=== PATIENT | male | born 1940 | race Caucasian/White ===

== ENCOUNTER 2022-05-10 06:18 | Outpatient (REF) | payer SELFPAY ==
[2022-05-10 06:07] LABS: MANUAL DIFF FLAG NO
[2022-05-10 06:34] LABS: Basophils Percent Auto 0.5 % (0-2); Eosinophils Absolute Auto 0.3 X10*3/uL (0.0-0.4); Eosinophils Percent Auto 5.5 % (0-4); Hematocrit 35.4 % (42.0-52.0); Hemoglobin 10.6 g/dl (14.0-18.0); Imm Gran Abs Auto 0.03 X10*3/uL (0.00-0.03); Imm Gran Pct Auto 0.5 % (0.0-0.4); Lymphocytes Absolute Auto 1.2 X10*3/uL (1.2-4.9); Lymphocytes Percent Auto 20.3 % (20-40); Mean Corpuscular HGB Conc 29.9 g/dl (31.0-36.0); Mean Corpuscular Hemoglobin 27.2 pg (27.0-33.0); Mean Corpuscular Volume 90.8 fL (80.0-98.0); Mean Platelet Volume 10.6 fL (9.4-12.4); Monocytes Absolute Auto 0.8 X10*3/uL (0.1-1.2); Monocytes Percent Auto 13.3 % (2-11); Neutrophils Absolute Auto 3.4 x10*3/uL (2.0-8.3); Neutrophils Percent Auto 59.9 % (45-73); Platelet Count 152 X10*3/uL (160-400); Red Cell Distribution Width 13.2 % (11.0-16.0); White Blood Count 5.7 X10*3/uL (4.8-10.8)
[2022-05-10 07:07] LABS: Anion Gap 11 (12-20); Blood Urea Nitrogen 22 mg/dL (9-16); Calcium 8.7 mg/dL (8.4-10.2); Chloride 97 mmol/L (96-108); Estimated Glomerular Filt Rate > 60; Glucose Random 73 mg/dL (60-115); Potassium 4.5 mmol/L (3.3-5.1); Sodium 144 mmol/L (135-145)
[2022-05-10 08:02] LABS: Carbon Dioxide 41 mmol/L (22-29)
== END 2022-05-10 06:19 | disposition home or self-care (01) ==
LOC: HO.MMNH1L 06:18
PROVIDERS: Visit Provider Family Medicine
DX: I10 Essential (primary) hypertension (principal); E87.3 Alkalosis
CPT/HCPCS: 36415; 80048; 85025

== ENCOUNTER 2022-05-20 03:51 | Emergency (ER) | payer MEDICARE, MEDICAID, SELFPAY ==
[2022-05-20] VITALS (13 sets, daily range): BP systolic 71–131; BP diastolic 39–71; PULSE 77–120; RESP 14–27; TEMP 37.1–37.9; O2SAT 94–99; BMI 28.7
--- NOTE | 2022-05-20 | ECG_ITS ---
Test Reason : TACHYCARDIA Blood Pressure : / mmHG Vent. Rate : 118 BPM Atrial Rate : 118 BPM P-R Int : 126 ms QRS Dur : 120 ms QT Int : 326 ms P-R-T Axes : 049 204 059 degrees QTc Int : 456 ms Sinus tachycardia Right bundle branch block Abnormal ECG No previous ECGs available Referred By: Generic ED Physician Electronically Signed By:ELADIO CONNOLLY MD
--- NOTE | ~2022-05-20 | CT_ITS ---
EXAMINATION: CT ABDOMEN AND PELVIS WITH CONTRAST CLINICAL INFORMATION: Lower abdominal pain. Question COMPARISON: None available. TECHNIQUE: Multidetector volumetric images were obtained from the superior aspect of the liver through the pubic symphysis following administration 85 mL of Omnipaque 350 intravenous contrast. Sagittal and coronal reformatted images were obtained on the technologist's workstation. Oral contrast: No This CT examination was performed using dose optimization techniques as appropriate, variously including the following: *Automated exposure control *Adjustment of mA and/or kV according to patient size (this includes techniques or standardized protocols for targeted exams where dose is matched to indication/reason for exam; i.e. extremities or head) *Use of iterative reconstruction technique DLP: 953 mGy-cm FINDINGS: IMAGED THORAX: Bibasilar platelike atelectasis. No parenchymal consolidation or evidence of pneumonitis. Aberrant right subclavian artery. Triple vessel coronary calcifications. LIVER, GALLBLADDER, AND BILIARY TREE: Diffusely heterogeneous hepatic parenchyma. No focal liver lesions. No biliary dilatation. Gallbladder physiologically distended. PANCREAS: Displaced anteriorly by a large retroperitoneal hematoma, measuring up to 16 x 9 cm transaxially, and approximately 14 cm craniocaudally. Centrally within the hematoma is a slightly more dense and potentially circumscribed component of the hematoma versus underlying mass, which measures 6.6 x 4.1 x 9.4 cm. Hemorrhage extends into the pancreatic head and neck, with obscuration of the pancreatic head parenchyma. The pancreatic body and tail are unremarkable. SPLEEN: Normal size. ADRENAL GLANDS: Unremarkable. KIDNEYS AND URETERS: There is nonenhancement of the upper half of the left kidney with associated atrophy compatible with a chronic infarct. Both kidneys show generalized atrophy, more pronounced on the left. There are bilateral simple renal cysts which are benign. No follow-up imaging recommended. BLADDER: Multiple bladder diverticula present. GASTROINTESTINAL TRACT: Scattered colonic diverticula. No evidence of diverticulitis. Normal appendix. Stomach and small bowel unremarkable. The duodenum is displaced anteriorly by the above-described retroperitoneal process. ABDOMINAL WALL: No significant hernia is appreciated. LYMPH NODES: Normal. VASCULAR: Severe atherosclerotic vascular disease present, with marked focal stenosis at the origin of the celiac axis, greater than 90% over length of 7 mm. There is mild focal stenosis at the origin of the superior mesenteric artery. Inferior mesenteric artery is patent. The posterior segment of the liver (segments 6 and 7) is supplied by an accessory right hepatic artery. PELVIC VISCERA: All extensive coarse calcifications throughout the prostate. OSSEOUS STRUCTURES: No acute or suspicious osseous abnormalities. CT/CT abdomen pelvis w IV con IMPRESSION: * Large retroperitoneal hematoma measuring 16 x 9 x 14 cm, displacing the pancreas and duodenum anteriorly. There is a more dense component centrally within the hematoma which could represent a circumscribed component of the hematoma versus an underlying mass. Recommend MRI abdomen without and with contrast for further evaluation. * Diffusely heterogeneous hepatic parenchyma. This could relate to hepatitis or geographic hepatic steatosis. 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 * Mild focal stenosis at the origin of the superior mesenteric artery. * Scattered colonic diverticula without evidence of diverticulitis. * Bilateral renal atrophy, more pronounced on the left, with chronic infarct of the upper half of the left kidney. * Additional chronic findings as above. This critical result was discussed with Dr Willis at 05/20/2022 5:38 AM and it was ascertained that the content and urgency of the report was understood at the time of direct communication.
--- NOTE | ~2022-05-20 | XR_ITS ---
EXAMINATION: XR CHEST CLINICAL INFORMATION: Shortness of breath COMPARISON: None available. TECHNIQUE: Frontal view of the chest was obtained. FINDINGS: Low lung volumes with bilateral atelectatic changes. Lungs otherwise clear. No pneumothorax. No pleural effusion. 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 XR/XR chest 1V IMPRESSION: * No acute findings. 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
--- NOTE | 2022-05-20 04:19 | ED_ITS ---
HPI - Abdominal Pain General Chief Complaint: Abdominal Pain Stated Complaint: LOW ABD PAIN,SOB FROM SNF PER EMS Time Seen by Provider: 05/20/22 04:17 Source: patient, family and EMS Limitations: other History of Present Illness HPI narrative: Patient 81 years old with history of hypertension, COPD/STEPHEN?, arthritis came from retirement for not feeling good having lower abdominal pain since last night patient had loose bowel movement prior to arrival on oxygen 2 L via nasal cannula saturating 88% feels nauseated no fever no chills patient used to live at home went to [facility] after fall and transferred to retirement post fall rehabilitation. Patient spoke to his at 03:30 complaining of abdominal pain and feels like he is dying patient is a DNR DNI Related Data Home Medications Medication Instructions Recorded Confirmed Lactobacillus acidophilus 1 cap PO DAILY 05/20/22 05/20/22 albuterol sulfate 90 mcg/actuation 2 puff inhalation Q4H PRN Wheezing 05/20/22 05/20/22 aerosol inhaler artificial tears solution eye drops 1 drp ophthalmic (eye) BID PRN Dry 05/20/22 05/20/22 Eye(S) benzocaine 15 mg-menthol 2.6 mg 1 jaye mucous membrane Q6H PRN Sore 05/20/22 05/20/22 lozenges Throat cholecalciferol (vitamin D3) 125 125 mcg PO DAILY 05/20/22 05/20/22 mcg (5,000 unit) tablet dexamethasone 6 mg tablet 6 mg PO DAILY 05/20/22 05/20/22 docusate sodium 100 mg capsule 100 mg PO DAILY 05/20/22 05/20/22 donepezil 10 mg tablet (Aricept) 10 mg PO DAILY 05/20/22 05/20/22 duloxetine 60 mg capsule,delayed 60 mg PO DAILY 05/20/22 05/20/22 release fluticasone propionate 50 1 spray intranasal BID 05/20/22 05/20/22 mcg/actuation nasal spray,suspension gabapentin 100 mg capsule 100 mg PO TID 05/20/22 05/20/22 guaifenesin 100 mg/5 mL oral liquid 200 mg PO Q4H PRN Cough 05/20/22 05/20/22 omeprazole 20 mg tablet,delayed 20 mg PO DAILY 05/20/22 05/20/22 release polyethylene glycol 3350 17 gram 17 g PO DAILY 05/20/22 05/20/22 oral powder packet sennosides 8.6 mg-docusate sodium 1 tab PO BEDTIME 05/20/22 05/20/22 50 mg tablet (Senna with Docusate Sodium) Allergies Allergy/AdvReac Type Severity Reaction Status Date / Time oxycodone AdvReac Unknown Unknown Verified 05/20/22 04:26 Review of Systems Review of Systems Yes all other systems are reviewed and are negative [facility] Past Medical History Medical History (Updated 05/20/22 @ 06:46 by Luisito Weinberg MD) Anemia CKD (chronic kidney disease) COPD (chronic obstructive pulmonary disease) Dementia Frequent falls GERD (gastroesophageal reflux disease) Gout Social History Social History Alcohol intake: never Smoked in Last 30 Days: No Advance Directives: No Advance Directives Information Provided: No Physical Exam ED Vital Signs: Vital Signs - 24 hr 05/20/22 03:59 05/20/22 04:19 05/20/22 04:47 Temperature 100.2 F Pulse Rate 120 H 120 H Respiratory Rate 20 20 Blood Pressure 72/50 L 131/71 Pulse Oximetry 96 96 Oxygen Delivery Method Nasal Cannula Nasal Cannula Oxygen Flow Rate 4 05/20/22 05:42 05/20/22 06:00 05/20/22 06:55 Temperature 98.8 F Pulse Rate 99 93 94 Respiratory Rate 24 H 22 H 20 Blood Pressure 93/54 L 71/39 L 95/54 L Pulse Oximetry 94 98 94 Oxygen Delivery Method Nasal Cannula Nasal Cannula Nasal Cannula Oxygen Flow Rate 3 3 3 BMI result Body Mass Index 28.7 Appearance: Lethargic sick looking Eyes: pale++ ENT: Pharynx normal. Oral Mucosa moist Neck: Normal inspection. Neck supple. CVS: Normal heart rate and rhythm. Pulses normal. Respiratory: No respiratory distress. Equal air entry bilateral, no wheezing/rales/rhonchi Abdomen: Soft, mid abdomen tenderness++ Bowel sounds are present, no mass palpable, no CVA tenderness Skin: Skin warm and dry. Normal skin color. Normal skin turgor. Extremities: No lower extremity edema. No calf tenderness Neuro: Oriented X 2-3. No motor deficit. Medical Decision Making Medical Decision Making MDM Narrative: Patient acute hypertension with diarrhea workup showed leukocytosis with lactic acidosis etiology not very clear patient had low-grade temperature COVID positiv e CT scan of the abdomen showed retroperitoneal hematoma etiology not clear. Will admit patient for further evaluation will call surgery Case discussed with Dr. Vallejo , surgeon will follow advised medical admission Etiology for lactic acidosis and leukocytosis likely from dehydration and volume loss no clear-cut source of infection or bowel ischemia noted Patient's blood pressure improved after IV hydration will check procalcitonin. 7 am blood pressure soft 95/54 heart rate [address] Vallejo, abdomen is benign will give 1 unit of blood nurse's albumin recheck H&H patient DNR DNI does not want much to be done at this time will admit to medical service Dr. Klein aware Differential Diagnosis mesentric ischemia/colitis/perforated bowel/kidney stone/UTI Consult Healthcare Provider Management of the patient was discussed with: Hospitalist Lab Data MDM Lab Attestation statement: I reviewed the patient's lab results. 05/20/22 04:34 05/20/22 04:34 Labs: Lab Results 05/20/22 05/20/22 05/20/22 Range/Units 04:28 04:34 04:34 WBC 28.0 H (4.8-10.8) X10*3/uL RBC 3.99 L (4.60-5.80) X10*6/uL Hgb 10.9 L (14.0-18.0) g/dl Hct 36.6 L (42.0-52.0) % MCV 91.7 (80.0-98.0) fL MCH 27.3 (27.0-33.0) pg MCHC 29.8 L (31.0-36.0) g/dl RDW 13.0 (11.0-16.0) % Plt Count 275 (160-400) X10*3/uL MPV 10.7 (9.4-12.4) fL Immature Gran % (Auto) 4.7 H (0.0-0.4) % Neut % (Auto) 79.1 H (45-73) % Lymph % (Auto) 4.5 L (20-40) % Rincon % (Auto) 11.5 H (2-11) % Eos % (Auto) 0.0 (0-4) % Baso % (Auto) 0.2 (0-2) % Lymph # (Auto) 1.3 (1.2-4.9) X10*3/uL Rincon # (Auto) 3.2 H (0.1-1.2) X10*3/uL Eos # (Auto) 0.0 (0.0-0.4) X10*3/uL Baso # (Auto) 0.1 (0.0-0.2) X10*3/uL Abs Immat Gran (auto) 1.31 H (0.00-0.03) X10*3/uL Absolute Neuts (auto) 22.1 H (2.0-8.3) x10*3/uL Absolute Nucleated RBC 0.040 H (0.0-0.012) X10*3/uL Nucleated RBC % (auto) 0.1 (0.0-0.2) /100WBC Smear Tech's Comments VERIFIED PT (10.0-13.1) SEC INR (0.9-1.1) APTT (26.0-36.4) SEC Sodium 142 (135-145) mmol/L Potassium 5.2 H (3.3-5.1) mmol/L Chloride 92 L (96-108) mmol/L Carbon Dioxide 33 H (22-29) mmol/L Anion Gap 22 H (12-20) BUN 54 H (9-16) mg/dL Creatinine 1.56 H (0.5-1.4) mg/dL Estim Creat Clear Calc 41.3 Estimated GFR 43 POC Glucose 305 H (60-115) mg/dL Random Glucose 431 H* (60-115) mg/dL Lactic Acid (0.5-2.0) mmol/L Calcium 8.9 (8.4-10.2) mg/dL Total Bilirubin 0.4 (0.0-1.0) mg/dL Direct Bilirubin < 0.2 (0.0-0.5) mg/dL AST 21 (5-37) U/L ALT 18 (0-40) U/L Alkaline Phosphatase 51 (39-117) U/L Total Protein 4.7 L (6.5-8.0) g/dL Albumin 2.6 L (3.5-5.0) g/dL Lipase 154 H (8-78) U/L COVID-19 (LAURIE) (Negative) COVID-19 Clin Com 05/20/22 05/20/22 05/20/22 Range/Units 04:34 04:34 04:59 WBC (4.8-10.8) X10*3/uL RBC (4.60-5.80) X10*6/uL Hgb (14.0-18.0) g/dl Hct (42.0-52.0) % MCV (80.0-98.0) fL MCH (27.0-33.0) pg MCHC (31.0-36.0) g/dl RDW (11.0-16.0) % Plt Count (160-400) X10*3/uL MPV (9.4-12.4) fL Immature Gran % (Auto) (0.0-0.4) % Neut % (Auto) (45-73) % Lymph % (Auto) (20-40) % Rincon % (Auto) (2-11) % Eos % (Auto) (0-4) % Baso % (Auto) (0-2) % Lymph # (Auto) (1.2-4.9) X10*3/uL Rincon # (Auto) (0.1-1.2) X10*3/uL Eos # (Auto) (0.0-0.4) X10*3/uL Baso # (Auto) (0.0-0.2) X10*3/uL Abs Immat Gran (auto) (0.00-0.03) X10*3/uL Absolute Neuts (auto) (2.0-8.3) x10*3/uL Absolute Nucleated RBC (0.0-0.012) X10*3/uL Nucleated RBC % (auto) (0.0-0.2) /100WBC Smear Tech's Comments PT 11.1 (10.0-13.1) SEC INR 1.0 (0.9-1.1) APTT 21.4 L (26.0-36.4) SEC Sodium (135-145) mmol/L Potassium (3.3-5.1) mmol/L Chloride (96-108) mmol/L Carbon Dioxide (22-29) mmol/L Anion Gap (12-20) BUN (9-16) mg/dL Creatinine (0.5-1.4) mg/dL Estim Creat Clear Calc Estimated GFR POC Glucose (60-115) mg/dL Random Glucose (60-115) mg/dL Lactic Acid 10.2 H* (0.5-2.0) mmol/L Calcium (8.4-10.2) mg/dL Total Bilirubin (0.0-1.0) mg/dL Direct Bilirubin (0.0-0.5) mg/dL AST (5-37) U/L ALT (0-40) U/L Alkaline Phosphatase (39-117) U/L Total Protein (6.5-8.0) g/dL Albumin (3.5-5.0) g/dL Lipase (8-78) U/L COVID-19 (LAURIE) Positive A (Negative) COVID-19 Clin Com See Note 05/20/22 05/20/22 Range/Units 06:23 07:10 WBC (4.8-10.8) X10*3/uL RBC (4.60-5.80) X10*6/uL Hgb (14.0-18.0) g/dl Hct (42.0-52.0) % MCV (80.0-98.0) fL MCH (27.0-33.0) pg MCHC (31.0-36.0) g/dl RDW (11.0-16.0) % Plt Count (160-400) X10*3/uL MPV (9.4-12.4) fL Immature Gran % (Auto) (0.0-0.4) % Neut % (Auto) (45-73) % Lymph % (Auto) (20-40) % Rincon % (Auto) (2-11) % Eos % (Auto) (0-4) % Baso % (Auto) (0-2) % Lymph # (Auto) (1.2-4.9) X10*3/uL Rincon # (Auto) (0.1-1.2) X10*3/uL Eos # (Auto) (0.0-0.4) X10*3/uL Baso # (Auto) (0.0-0.2) X10*3/uL Abs Immat Gran (auto) (0.00-0.03) X10*3/uL Absolute Neuts (auto) (2.0-8.3) x10*3/uL Absolute Nucleated RBC (0.0-0.012) X10*3/uL Nucleated RBC % (auto) (0.0-0.2) /100WBC Smear Tech's Comments PT (10.0-13.1) SEC INR (0.9-1.1) APTT (26.0-36.4) SEC Sodium (135-145) mmol/L Potassium (3.3-5.1) mmol/L Chloride (96-108) mmol/L Carbon Dioxide (22-29) mmol/L Anion Gap (12-20) BUN (9-16) mg/dL Creatinine (0.5-1.4) mg/dL Estim Creat Clear Calc Estimated GFR POC Glucose 250 H 193 H (60-115) mg/dL Random Glucose (60-115) mg/dL Lactic Acid (0.5-2.0) mmol/L Calcium (8.4-10.2) mg/dL Total Bilirubin (0.0-1.0) mg/dL Direct Bilirubin (0.0-0.5) mg/dL AST (5-37) U/L ALT (0-40) U/L Alkaline Phosphatase (39-117) U/L Total Protein (6.5-8.0) g/dL Albumin (3.5-5.0) g/dL Lipase (8-78) U/L COVID-19 (LAURIE) (Negative) COVID-19 Clin Com External Record Review External record reviewed: Inpatient record From [facility] 05/04 no history of retroperitoneal bleed Medications Administered Generic Name Dose Route Start Last Admin Trade Name Freq PRN Reason Stop Dose Admin Sodium Chloride 1,000 mls @ 999 mls/hr 05/20/22 06:35 05/20/22 06:57 Ns IV 05/20/22 07:35 999 mls/hr .Q1H1M ONE Administration Discontinued Medications Generic Name Dose Route Start Last Admin Trade Name Freq PRN Reason Stop Dose Admin Piperacillin Sod/Tazobactam 50 mls @ 100 mls/hr 05/20/22 04:54 05/20/22 05:54 Sod 3.375 gm/ Sodium Chloride IV 05/20/22 05:23 Infused ONCE ONE Infusion Sodium Chloride 1,000 mls @ 999 mls/hr 05/20/22 05:00 05/20/22 06:13 Ns IV 05/20/22 06:00 Infused .Q1H1M EVELYN Infusion Sodium Chloride 1,000 mls @ 999 mls/hr 05/20/22 05:03 05/20/22 06:13 Ns IV 05/20/22 06:03 Infused .Q1H1M ONE Infusion Sodium Chloride 1,000 mls @ 999 mls/hr 05/20/22 06:07 05/20/22 06:14 Ns IV 05/20/22 07:07 999 mls/hr .Q1H1M ONE Administration Insulin Human Lispro 10 unit 05/20/22 05:03 05/20/22 05:16 Insulin Lispro 100 Unit/Ml 3 Ml Vial SUBCUT 05/20/22 05:04 10 unit ONCE ONE Administration Iohexol 85 ml 05/20/22 04:46 05/20/22 04:46 Iohexol 350 Mg/Ml 100 Ml Infus..Btl IV 05/20/22 04:47 85 ml ONCE ONE Administration Critical Care Time Critical Care Time Critical Care Time: Yes Total Critical Care Time: 65 Attestation: The patient was critically ill with a high probability of imminent or life threatening deterioration. I spent greater than 70 minutes of discontinuous time evaluating the patient,delivering critical care at the bedside, discussing and evaluating pertinent data with consultants. Critical care time does not i nclude time spent performing separately billable procedures or teaching. Total time spent performing critical care was 65 minutes. Discharge Plan Discharge Clinical Impression: Retroperitoneal hematoma, Enteritis, COVID-19, Acidosis, lactic, Leukocytosis Patient Disposition: Admitted As Inpatient
[2022-05-20 04:33] LABS: Glucose, Whole Blood 305 mg/dL (60-115)
[2022-05-20 04:45] LABS: Basophils Absolute Auto 0.1 X10*3/uL (0.0-0.2); Basophils Percent Auto 0.2 % (0-2); Hematocrit 36.6 % (42.0-52.0); Hemoglobin 10.9 g/dl (14.0-18.0); Imm Gran Abs Auto 1.31 X10*3/uL (0.00-0.03); Imm Gran Pct Auto 4.7 % (0.0-0.4); Lymphocytes Absolute Auto 1.3 X10*3/uL (1.2-4.9); Lymphocytes Percent Auto 4.5 % (20-40); MANUAL DIFF FLAG SCAN; Mean Corpuscular HGB Conc 29.8 g/dl (31.0-36.0); Mean Corpuscular Hemoglobin 27.3 pg (27.0-33.0); Mean Corpuscular Volume 91.7 fL (80.0-98.0); Mean Platelet Volume 10.7 fL (9.4-12.4); Monocytes Absolute Auto 3.2 X10*3/uL (0.1-1.2); Monocytes Percent Auto 11.5 % (2-11); NRBC Pct Auto 0.1 /100WBC (0.0-0.2); Neutrophils Absolute Auto 22.1 x10*3/uL (2.0-8.3); Neutrophils Percent Auto 79.1 % (45-73); Platelet Count 275 X10*3/uL (160-400); Red Blood Count 3.99 X10*6/uL (4.60-5.80); SCAN SMEAR FLAG 1
[2022-05-20] MEDS: iohexoL 350 MG/ML 100 ML INFUS..BTL 85 ML IV (04:46)
[2022-05-20] MEDS: 0.9 % Sodium Chloride 1,000 ML 999 ML IV ×4 (04:59→06:57)
[2022-05-20 05:02] LABS: Lactic Acid 10.2 mmol/L (0.5-2.0)
[2022-05-20 05:04] LABS: Alanine Aminotransferase 18 U/L (0-40); Albumin Level 2.6 g/dL (3.5-5.0); Alkaline Phosphatase 51 U/L (39-117); Anion Gap 22 (12-20); Aspartate Amino Transferase 21 U/L (5-37); Bilirubin Direct < 0.2 mg/dL (0.0-0.5); Bilirubin Total 0.4 mg/dL (0.0-1.0); Blood Urea Nitrogen 54 mg/dL (9-16); Calcium 8.9 mg/dL (8.4-10.2); Carbon Dioxide 33 mmol/L (22-29); Chloride 92 mmol/L (96-108); Creatinine Clr Calc Pharmacy 41.3; Estimated Glomerular Filt Rate 43; Glucose Random 431 mg/dL (60-115); Lipase 154 U/L (8-78); Potassium 5.2 mmol/L (3.3-5.1); SLIDE REVIEW VERIFIED; Sodium 142 mmol/L (135-145); Total Protein 4.7 g/dL (6.5-8.0)
[2022-05-20] MEDS: Piperacillin Sodium/Tazobactam 3.375 GM in 0.9 % Sodium Chloride 50 ML IV (05:10)
[2022-05-20 05:12] LABS: COVID-19 Test Positive (Negative); IDNOW Serial# BCCEAD1C
[2022-05-20] MEDS: Insulin Lispro 100 UNIT/ML 3 ML VIAL 10 UNIT SUBCUT (05:16)
--- NOTE | 2022-05-20 05:44 | PC.NURSE ---
Addendum entered by Gale Pittman 05/20/22 06:13: Provider Dr. Weinberg notified of BP of 71/39, new orders given. Original Note: Pt A&Ox3, reports 9/10 constant ABD pain since 1999 last night. Pt states pain feels punching , reports last BM was prior to arrival. Pt pale, cold to touch, rectal temp 100.2. Tachy on the bedside monitor, EKG obtained and reviewed by provider. Unable to obtain accurate BP, manual BP 72/50, provider Dr. Weinberg aware, new orders given as documented, Pt placed in trendelenburg position with BP improvement. Pt reports 2L of O2 at baseline via NC, currently on 4L sat o2 95%. Denies any SOB, CP or palpitations.
[2022-05-20 05:48] LABS: Prothrombin Time 11.1 SEC (10.0-13.1)
[2022-05-20 05:51] LABS: Partial Thromboplastin Time 21.4 SEC (26.0-36.4)
[2022-05-20 06:43] LABS: Reflex Lactate? Lactic Acid Added
[2022-05-20 06:46] LABS: Glucose, Whole Blood 250 mg/dL (60-115)
--- NOTE | 2022-05-20 06:49 | PHA.MEDREC ---
Pharmacy Consult ? Medication Reconciliation Pharmacy has completed the medication reconciliation [facility] med list. Abby Couch, PharmD
--- NOTE | 2022-05-20 07:14 | PC.NURSE ---
Bladder scan result 205 mL.
[2022-05-20 07:15] LABS: Glucose, Whole Blood 193 mg/dL (60-115)
[2022-05-20] MEDS: Albumin Human 25 % 100 ML IV ×2 (07:52→08:56)
--- NOTE | 2022-05-20 07:59 | PM.CNGS ---
History of Present Illness Consult details Consult date: 05/20/22 Narrative: 81-year-old male sent to the ER last night from the nursing because of diarrhea. He also apparently had some mild lower abdominal pain as well. He did not have any vomiting. Most of the history is from the patient's . The patient has been in a shelter for over 2 years. He has had dementia along with failure to thrive. He apparently had a fall over a month ago and was in [facility] at that time. He went back to a nursing thereafter His says that he had been to different nursing homes as they have not been happy with his care. He practically has been mostly bed-bound despite physical therapy. The patient currently denies all pain but says he does have some mild discomfort. He complains mostly of rib pain on both sides. He had a CAT scan showing a retroperitoneal hematoma adjacent to the duodenum. He also had severe lactic acidosis. 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 Review of Systems Constitutional: Constitutional: Denies chills and Denies fever(s) Cardiovascular: Cardiovascular: Denies chest pain Respiratory: Respiratory: Denies cough Gastrointestinal: Gastrointestinal: Reports diarrhea Psychiatric: Comments: Dementia but communicates adequately [facility] Past Medical History Medical History (Updated 05/21/22 @ 00:02 by Gatito Malloy) Anemia CKD (chronic kidney disease) COPD (chronic obstructive pulmonary disease) Dementia Frequent falls GERD (gastroesophageal reflux disease) Gout Social History Social History Alcohol intake: never Smoked in Last 30 Days: No Advance Directives: No Advance Directives Information Provided: No Meds Allergies Allergy/AdvReac Type Severity Reaction Status Date / Time oxycodone AdvReac Unknown Unknown Verified 05/20/22 04:26 Active Medications: Current Medications Albumin Human (Kedbumin 25 %) 100 mls @ 100 mls/hr IV Q1H EVELYN Stop: 05/20/22 09:29 Last Admin: 05/20/22 07:52 Dose: 100 mls/hr Vancomycin HCl (Vancomycin/Ns) 2,000 mg in 520 mls @ 260 mls/hr IV ONCE ONE Stop: 05/20/22 09:29 Home Medications Medication Instructions Recorded Confirmed Last Taken Type Lactobacillus acidophilus 1 cap PO DAILY 05/20/22 05/20/22 Unknown History albuterol sulfate 90 mcg/actuation 2 puff inhalation Q4H PRN Wheezing 05/20/22 05/20/22 Unknown History aerosol inhaler artificial tears solution eye drops 1 drp ophthalmic (eye) BID PRN Dry 05/20/22 05/20/22 Unknown History Eye(S) benzocaine 15 mg-menthol 2.6 mg 1 jaye mucous membrane Q6H PRN Sore 05/20/22 05/20/22 Unknown History lozenges Throat cholecalciferol (vitamin D3) 125 125 mcg PO DAILY 05/20/22 05/20/22 Unknown History mcg (5,000 unit) tablet dexamethasone 6 mg tablet 6 mg PO DAILY 05/20/22 05/20/22 Unknown History docusate sodium 100 mg capsule 100 mg PO DAILY 05/20/22 05/20/22 Unknown History donepezil 10 mg tablet (Aricept) 10 mg PO DAILY 05/20/22 05/20/22 Unknown History duloxetine 60 mg capsule,delayed 60 mg PO DAILY 05/20/22 05/20/22 Unknown History release fluticasone propionate 50 1 spray intranasal BID 05/20/22 05/20/22 Unknown History mcg/actuation nasal spray,suspension gabapentin 100 mg capsule 100 mg PO TID 05/20/22 05/20/22 Unknown History guaifenesin 100 mg/5 mL oral liquid 200 mg PO Q4H PRN Cough 05/20/22 05/20/22 Unknown History omeprazole 20 mg tablet,delayed 20 mg PO DAILY 05/20/22 05/20/22 Unknown History release polyethylene glycol 3350 17 gram 17 g PO DAILY 05/20/22 05/20/22 Unknown History oral powder packet sennosides 8.6 mg-docusate sodium 1 tab PO BEDTIME 05/20/22 05/20/22 Unknown History 50 mg tablet (Senna with Docusate Sodium) Physical Exam Vital Signs: Vital Signs: Last Vital Signs Temp 98.8 F 05/20/22 06:55 Pulse 88 05/20/22 07:53 Resp 27 H 05/20/22 07:53 BP 79/46 L 05/20/22 07:53 Pulse Ox 96 05/20/22 07:53 O2 Del Method Nasal Cannula 05/20/22 07:53 O2 Flow Rate 3 05/20/22 07:53 Oxygen Flow Rate 4 05/20/22 03:59 BMI result Body Mass Index 28.7 Const: Other: mildly short of breath, answers questions adequately General: comfortable Resp: Other: mildly short of breath Cardio: Rate: regular rate GI: Inspection: No distended Palpation (GI): Soft to palpation, not firm, nontender and no guarding Results Labs 05/20/22 04:34 05/20/22 04:34 Labs: Abnormal lab results 05/20/22 05/20/22 05/20/22 Range/Units 04:28 04:34 04:34 WBC 28.0 H (4.8-10.8) X10*3/uL RBC 3.99 L (4.60-5.80) X10*6/uL Hgb 10.9 L (14.0-18.0) g/dl Hct 36.6 L (42.0-52.0) % MCHC 29.8 L (31.0-36.0) g/dl Immature Gran % (Auto) 4.7 H (0.0-0.4) % Neut % (Auto) 79.1 H (45-73) % Lymph % (Auto) 4.5 L (20-40) % Mchenry % (Auto) 11.5 H (2-11) % Mchenry # (Auto) 3.2 H (0.1-1.2) X10*3/uL Abs Immat Gran (auto) 1.31 H (0.00-0.03) X10*3/uL Absolute Neuts (auto) 22.1 H (2.0-8.3) x10*3/uL Absolute Nucleated RBC 0.040 H (0.0-0.012) X10*3/uL APTT (26.0-36.4) SEC Potassium 5.2 H (3.3-5.1) mmol/L Chloride 92 L (96-108) mmol/L Carbon Dioxide 33 H (22-29) mmol/L Anion Gap 22 H (12-20) BUN 54 H (9-16) mg/dL Creatinine 1.56 H (0.5-1.4) mg/dL POC Glucose 305 H (60-115) mg/dL Random Glucose 431 H* (60-115) mg/dL Lactic Acid (0.5-2.0) mmol/L Lactic Acid F/U @ 2Hr (0.5-2.0) mmol/L Total Protein 4.7 L (6.5-8.0) g/dL Albumin 2.6 L (3.5-5.0) g/dL Lipase 154 H (8-78) U/L COVID-19 (LAURIE) (Negative) Crossmatch 05/20/22 05/20/22 05/20/22 Range/Units 04:34 04:34 04:59 WBC (4.8-10.8) X10*3/uL RBC (4.60-5.80) X10*6/uL Hgb (14.0-18.0) g/dl Hct (42.0-52.0) % MCHC (31.0-36.0) g/dl Immature Gran % (Auto) (0.0-0.4) % Neut % (Auto) (45-73) % Lymph % (Auto) (20-40) % Mchenry % (Auto) (2-11) % Mchenry # (Auto) (0.1-1.2) X10*3/uL Abs Immat Gran (auto) (0.00-0.03) X10*3/uL Absolute Neuts (auto) (2.0-8.3) x10*3/uL Absolute Nucleated RBC (0.0-0.012) X10*3/uL APTT 21.4 L (26.0-36.4) SEC Potassium (3.3-5.1) mmol/L Chloride (96-108) mmol/L Carbon Dioxide (22-29) mmol/L Anion Gap (12-20) BUN (9-16) mg/dL Creatinine (0.5-1.4) mg/dL POC Glucose (60-115) mg/dL Random Glucose (60-115) mg/dL Lactic Acid 10.2 H* (0.5-2.0) mmol/L Lactic Acid F/U @ 2Hr (0.5-2.0) mmol/L Total Protein (6.5-8.0) g/dL Albumin (3.5-5.0) g/dL Lipase (8-78) U/L COVID-19 (LAURIE) Positive A (Negative) Crossmatch 05/20/22 05/20/22 05/20/22 Range/Units 06:23 06:53 06:53 WBC (4.8-10.8) X10*3/uL RBC (4.60-5.80) X10*6/uL Hgb (14.0-18.0) g/dl Hct (42.0-52.0) % MCHC (31.0-36.0) g/dl Immature Gran % (Auto) (0.0-0.4) % Neut % (Auto) (45-73) % Lymph % (Auto) (20-40) % Mchenry % (Auto) (2-11) % Mchenry # (Auto) (0.1-1.2) X10*3/uL Abs Immat Gran (auto) (0.00-0.03) X10*3/uL Absolute Neuts (auto) (2.0-8.3) x10*3/uL Absolute Nucleated RBC (0.0-0.012) X10*3/uL APTT (26.0-36.4) SEC Potassium (3.3-5.1) mmol/L Chloride (96-108) mmol/L Carbon Dioxide (22-29) mmol/L Anion Gap (12-20) BUN (9-16) mg/dL Creatinine (0.5-1.4) mg/dL POC Glucose 250 H (60-115) mg/dL Random Glucose (60-115) mg/dL Lactic Acid (0.5-2.0) mmol/L Lactic Acid F/U @ 2Hr 4.9 H* (0.5-2.0) mmol/L Total Protein (6.5-8.0) g/dL Albumin (3.5-5.0) g/dL Lipase (8-78) U/L COVID-19 (LAURIE) (Negative) Crossmatch See Detail 05/20/22 Range/Units 07:10 WBC (4.8-10.8) X10*3/uL RBC (4.60-5.80) X10*6/uL Hgb (14.0-18.0) g/dl Hct (42.0-52.0) % MCHC (31.0-36.0) g/dl Immature Gran % (Auto) (0.0-0.4) % Neut % (Auto) (45-73) % Lymph % (Auto) (20-40) % Mchenry % (Auto) (2-11) % Mchenry # (Auto) (0.1-1.2) X10*3/uL Abs Immat Gran (auto) (0.00-0.03) X10*3/uL Absolute Neuts (auto) (2.0-8.3) x10*3/uL Absolute Nucleated RBC (0.0-0.012) X10*3/uL APTT (26.0-36.4) SEC Potassium (3.3-5.1) mmol/L Chloride (96-108) mmol/L Carbon Dioxide (22-29) mmol/L Anion Gap (12-20) BUN (9-16) mg/dL Creatinine (0.5-1.4) mg/dL POC Glucose 193 H (60-115) mg/dL Random Glucose (60-115) mg/dL Lactic Acid (0.5-2.0) mmol/L Lactic Acid F/U @ 2Hr (0.5-2.0) mmol/L Total Protein (6.5-8.0) g/dL Albumin (3.5-5.0) g/dL Lipase (8-78) U/L COVID-19 (LAURIE) (Negative) Crossmatch Short CBC 05/20/22 Range/Units 04:34 WBC 28.0 H (4.8-10.8) X10*3/uL Hgb 10.9 L (14.0-18.0) g/dl Hct 36.6 L (42.0-52.0) % Plt Count 275 (160-400) X10*3/uL BMP 05/20/22 04:34 Sodium 142 Potassium 5.2 H Chloride 92 L Carbon Dioxide 33 H BUN 54 H Creatinine 1.56 H Calcium 8.9 Liver Function 05/20/22 Range/Units 04:34 Total Bilirubin 0.4 (0.0-1.0) mg/dL Direct Bilirubin < 0.2 (0.0-0.5) mg/dL AST 21 (5-37) U/L ALT 18 (0-40) U/L Alkaline Phosphatase 51 (39-117) U/L Albumin 2.6 L (3.5-5.0) g/dL All other labs normal. Laboratory Results WBC 28.0 X10*3/uL (4.8-10.8) H 05/20/22 04:34 RBC 3.99 X10*6/uL (4.60-5.80) L 05/20/22 04:34 Hgb 10.9 g/dl (14.0-18.0) L 05/20/22 04:34 Hct 36.6 % (42.0-52.0) L 05/20/22 04:34 MCV 91.7 fL (80.0-98.0) 05/20/22 04:34 MCH 27.3 pg (27.0-33.0) 05/20/22 04:34 MCHC 29.8 g/dl (31.0-36.0) L 05/20/22 04:34 RDW 13.0 % (11.0-16.0) 05/20/22 04:34 Plt Count 275 X10*3/uL (160-400) 05/20/22 04:34 MPV 10.7 fL (9.4-12.4) 05/20/22 04:34 Immature Gran % (Auto) 4.7 % (0.0-0.4) H 05/20/22 04:34 Neut % (Auto) 79.1 % (45-73) H 05/20/22 04:34 Lymph % (Auto) 4.5 % (20-40) L 05/20/22 04:34 Mchenry % (Auto) 11.5 % (2-11) H 05/20/22 04:34 Eos % (Auto) 0.0 % (0-4) 05/20/22 04:34 Baso % (Auto) 0.2 % (0-2) 05/20/22 04:34 Lymph # (Auto) 1.3 X10*3/uL (1.2-4.9) 05/20/22 04:34 Mchenry # (Auto) 3.2 X10*3/uL (0.1-1.2) H 05/20/22 04:34 Eos # (Auto) 0.0 X10*3/uL (0.0-0.4) 04/06/23 04:34 Baso # (Auto) 0.1 X10*3/uL (0.0-0.2) 05/20/22 04:34 Abs Immat Gran (auto) 1.31 X10*3/uL (0.00-0.03) H 05/20/22 04:34 Absolute Neuts (auto) 22.1 x10*3/uL (2.0-8.3) H 05/20/22 04:34 Absolute Nucleated RBC 0.040 X10*3/uL (0.0-0.012) H 05/20/22 04:34 Nucleated RBC % (auto) 0.1 /100WBC (0.0-0.2) 05/20/22 04:34 Smear Tech's Comments VERIFIED 05/20/22 04:34 PT 11.1 SEC (10.0-13.1) 05/20/22 04:34 INR 1.0 (0.9-1.1) 05/20/22 04:34 APTT 21.4 SEC (26.0-36.4) L 05/20/22 04:34 Sodium 142 mmol/L (135-145) 05/20/22 04:34 Potassium 5.2 mmol/L (3.3-5.1) H 05/20/22 04:34 Chloride 92 mmol/L (96-108) L 05/20/22 04:34 Carbon Dioxide 33 mmol/L (22-29) H 05/20/22 04:34 Anion Gap 22 (12-20) H 05/20/22 04:34 BUN 54 mg/dL (9-16) H 05/20/22 04:34 Creatinine 1.56 mg/dL (0.5-1.4) H 05/20/22 04:34 Estim Creat Clear Calc 41.3 05/20/22 04:34 Estimated GFR 43 05/20/22 04:34 POC Glucose 193 mg/dL (60-115) H 05/20/22 07:10 Random Glucose 431 mg/dL (60-115) H* 05/20/22 04:34 Lactic Acid 10.2 mmol/L (0.5-2.0) H* 05/20/22 04:34 Lactic Acid F/U @ 2Hr 4.9 mmol/L (0.5-2.0) H* 05/20/22 06:53 Calcium 8.9 mg/dL (8.4-10.2) 05/20/22 04:34 Total Bilirubin 0.4 mg/dL (0.0-1.0) 05/20/22 04:34 Direct Bilirubin < 0.2 mg/dL (0.0-0.5) 05/20/22 04:34 AST 21 U/L (5-37) 05/20/22 04:34 ALT 18 U/L (0-40) 05/20/22 04:34 Alkaline Phosphatase 51 U/L (39-117) 05/20/22 04:34 Total Protein 4.7 g/dL (6.5-8.0) L 05/20/22 04:34 Albumin 2.6 g/dL (3.5-5.0) L 05/20/22 04:34 Lipase 154 U/L (8-78) H 05/20/22 04:34 Procalcitonin 0.09 ng/mL 05/20/22 04:34 COVID-19 (LAURIE) Positive (Negative) A 05/20/22 04:59 COVID-19 Clin Com See Note 05/20/22 04:59 Blood Type A Negative 05/20/22 06:53 Antibody Screen NEGATIVE 05/20/22 06:53 Crossmatch See Detail 05/20/22 06:53 Impressions Abdomen/Pelvis CT 05/20/22 04:52 IMPRESSION: * Large retroperitoneal hematoma measuring 16 x 9 x 14 cm, displacing the pancreas and duodenum anteriorly. There is a more dense component centrally within the hematoma which could represent a circumscribed component of the hematoma versus an underlying mass. Recommend MRI abdomen without and with contrast for further evaluation. * Diffusely heterogeneous hepatic parenchyma. This could relate to hepatitis or geographic hepatic steatosis. 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 * Mild focal stenosis at the origin of the superior mesenteric artery. * Scattered colonic diverticula without evidence of diverticulitis. * Bilateral renal atrophy, more pronounced on the left, with chronic infarct of the upper half of the left kidney. * Additional chronic findings as above. This critical result was discussed with Dr Willis at 05/20/2022 5:38 AM and it was ascertained that the content and urgency of the report was understood at the time of direct communication. Chest X-Ray 05/20/22 04:58 IMPRESSION: * No acute findings. 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 Assessment and Plan (1) Acidosis, lactic: Status: Inactive 81-year-old male with a long history of being bed-bound, with failure to thrive, shelter resident, admitted because of diarrhea, with lactic acidosis. I have reviewed his CAT scan. There is a large retroperitoneal hematoma measuring 16 x 9 x 14 cm, displacing the pancreas and duodenum anteriorly. There is a more dense component centrally within the hematoma which could represent a circumscribed component of the hematoma versus an underlying mass. He has some stenosis of his mesenteric vessels (celiac and SMA) with no obvious signs of bowel ischemia radiographically. His abdominal exam is otherwise very benign. His lactate has improved from 10 to 4.2 after hydration. A Massey catheter has just been inserted. He is likely volume depleted from diarrhea. His stools will be checked for C diff. He should be aggressively hydrated. I had a long discussion with his Lisa at [phone]. She was the source of most of the history. A DNR DNI order has been in effect as per the patient's wishes from before. According to the , no aggressive invasive measures are to be done to the patient but she agrees with going had been supportive treatment for now for any treatable cause of his current illness. His blood sugars have also been markedly elevated. In view of his the retroperitoneal hematoma, I would hold off on anticoagulant treatment at this time including heparin. I am uncertain as to the etiology of his hematoma he had he did have a fall about a month ago. He does not seem to have been on any anti anticoagulant treatment recently either. I have discussed the above with the emergency room staff. (2) Retroperitoneal hematoma: Status: Inactive (3) Leukocytosis: Status: Inactive Time Spent With Patient Time: Total time managing care of this patient today ____ minutes. Procedures Date of Service Date of Service: 05/20/22
[2022-05-20 08:01] LABS: Procalcitonin 0.09 ng/mL
[2022-05-20 08:15] LABS: Basophils Absolute Auto 0.1 X10*3/uL (0.0-0.2); Basophils Percent Auto 0.2 % (0-2); Hematocrit 30.1 % (42.0-52.0); Hemoglobin 9.2 g/dl (14.0-18.0); Imm Gran Abs Auto 1.29 X10*3/uL (0.00-0.03); Lymphocytes Absolute Auto 0.5 X10*3/uL (1.2-4.9); Lymphocytes Percent Auto 1.5 % (20-40); MANUAL DIFF FLAG SCAN; Mean Corpuscular HGB Conc 30.6 g/dl (31.0-36.0); Mean Corpuscular Volume 91.5 fL (80.0-98.0); Mean Platelet Volume 10.5 fL (9.4-12.4); Monocytes Absolute Auto 2.6 X10*3/uL (0.1-1.2); NRBC Pct Auto 0.1 /100WBC (0.0-0.2); Neutrophils Absolute Auto 27.8 x10*3/uL (2.0-8.3); Neutrophils Percent Auto 86.3 % (45-73); Platelet Count 243 X10*3/uL (160-400); Red Blood Count 3.29 X10*6/uL (4.60-5.80); SCAN SMEAR FLAG 1
[2022-05-20 08:19] LABS: White Blood Count 32.2 X10*3/uL (4.8-10.8)
[2022-05-20 08:19] LABS: Appearance Urine Turbid; Color Urine Yellow; Glucose Urine UA Negative (Negative); Leukocyte Esterase Urine Large (3+) (Negative); Nitrite Urine Negative (Negative); UMIC TRIGGER UACC YES; Urine Blood Moderate (2+) (Negative); Urine Ketones Negative (Negative); Urine Protein 100 (2+) mg/dL (Neg-Trace)
[2022-05-20 08:25] LABS: ~Lactic Acid-LAB USE ONLY 4.9 mmol/L (0.5-2.0)
[2022-05-20 08:28] LABS: Bacteria Urine None Seen (None Seen); RBC Urine >20 /HPF (0-2); Squamous Epithelial Cell Urine 0-2 /HPF (0-2); UACC Culture Trigger YES; WBC Urine >50 /HPF (0-5)
[2022-05-20 08:35] LABS: Lactic Acid 4.3 mmol/L (0.5-2.0)
[2022-05-20] MEDS: Hydrocortisone Sod Succ/PF 100 MG VIAL IVPUSH (08:56)
--- NOTE | 2022-05-20 09:17 | PC.NURSE ---
pt incontinent bloody stool - linens changed, pt cleaned and repositioned
[2022-05-20 09:45] LABS: Reflex Lactate? 2 Y
--- NOTE | 2022-05-20 09:48 | MHC.CM.ED ---
Addendum entered by Amber Marks 05/20/22 12:15: Per Dr Grayson, patient's wants patient to be [employer] ARCHITECT. Dr Grayson does not feel patient's is immanent. T/W spoke with patient's , Eva via telephone. Eva aware patient will return to [facility]. Addendum entered by Amber Marks 05/20/22 10:12: Patient tested positive for Covid on 05/13 per Ovidio harrell. Original Note: Patient currently in ER. From [facility]. Received notification from Dr Klein that patient's /HCP, states patient is DNR/DNI. Patient currently positive for Covid. Dr Klein unsure if patient will be admitted or will return to [facility]. Continue to monitor for d/c needs.
[2022-05-20 10:20] LABS: Reflex Lactate? Lactic Acid Added
[2022-05-20 10:59] LABS: ~Lactic Acid-LAB USE ONLY 3.5 mmol/L (0.5-2.0)
--- NOTE | 2022-05-20 12:53 | PC.NURSE ---
NURSE TO NURSE GIVEN TO YANDEL REMY
== END 2022-05-20 14:03 ==
PROVIDERS: Internal Medicine; Emergency Provider Emergency Medicine; PCP Family Medicine
DX: K52.9 Noninfective gastroenteritis and colitis, unspecified (principal); U07.1 COVID-19; E87.20 Acidosis, unspecified; R10.30 Lower abdominal pain, unspecified; R00.0 Tachycardia, unspecified; K66.1 Hemoperitoneum; D72.829 Elevated white blood cell count, unspecified; Z79.899 Other long term (current) drug therapy
CPT/HCPCS: 36415; 51798; 71045; 74177; 80053; 81001; 81003; 82248; 82947; 83605; 83690; 84145; 85025; 85610; 85730; 86850; 86900; 86901; 86923; 87040; 87086; 87088; 87635; 93005; 96361; 96365; 96366; 96367; 99285; J2543; J3370; P9047; Q9967